=== PATIENT | female | born 1995 | race Caucasian/White ===

== ENCOUNTER 2019-11-07 00:07 | Emergency (ER) | payer OTHER ==
[~2019-11-07] VITALS: Ht 149.9 cm; Wt 64.9 kg
[2019-11-07 00:16] VITALS: Ht 149.9 cm; Wt 64.9 kg
[2019-11-07 00:23] LABS: BASOPHILS 0.4 % (0-2); EOSINOPHILS 0.9 % (0-7); HEMATOCRIT 41.2 % (36.0-48.0); HEMOGLOBIN 14.1 g/dL (12-16); IMMATURE GRANULOCYTES 0.3 % (0-5); LYMPHOCYTES 19.2 % (15-50); MCH 29.7 pg (26.0-34.0); MCHC 34.2 g/dL (31.0-37.0); MCV 86.7 fL (80.0-100.0); MEAN PLATELET VOLUME 10.3 fL (7.4-10.4); MONOCYTES 7.9 % (2-11); NEUTROPHILS 71.3 % (40-80); PLATELET COUNT 317 10x3/uL (130-400); RBC 4.75 10x6/uL (4.00-5.40); WBC 11.2 10x3/uL (4.8-10.8)
[2019-11-07 00:31] LABS: ANION GAP 11.2 mmol/L (8-16); CALCIUM 9.3 mg/dL (8.5-10.1); CARBON DIOXIDE 26.6 mmol/L (21.0-32.0); POTASSIUM - SERUM 3.8 mmol/L (3.5-5.1)
[2019-11-07 00:37] LABS: ALBUMIN 4.4 g/dL (3.4-5.0); BILIRUBIN - TOTAL 0.36 mg/dL (0.2-1.3); PROTEIN - SERUM 8.1 g/dL (6.4-8.2)
[2019-11-07] MEDS ORDERED: PHENERGAN25 MG RC (00:45)
[2019-11-07 00:50] LABS: BILIRUBIN NEGATIVE (NEGATIVE); GLUCOSE NEGATIVE (NEGATIVE); KETONE NEGATIVE (NEGATIVE); NITRITE NEGATIVE (NEGATIVE); UROBILINOGEN NORMAL (NORMAL)
[2019-11-07 00:52] LABS: HCG URINE NEGATIVE (NEGATIVE)
[2019-11-07 02:00] VITALS: BP 111/63
== END 2019-11-07 02:00 | disposition home or self-care (01) ==
LOC: D.ER 00:07
PROVIDERS: Family Medicine
DX: R10.11 Right upper quadrant pain (principal)

== ENCOUNTER → 2019-11-12 10:49 | Outpatient (CLI) | payer OTHER ==
[~2019-11-12 10:49] MED LIST: PHENERGAN25 MG RC
== END | disposition home or self-care (01) ==
LOC: D.NM 08:30
PROVIDERS: ATTEND Clinical Nurse Specialist Adult Health
DX: R10.9 Unspecified abdominal pain (principal)

== ENCOUNTER 2019-11-19 05:07 | Day surgery (SDC) | payer OTHER ==
[~2019-11-19] VITALS: Ht 149.9 cm; Wt 64.9 kg
[2019-11-19 05:32] LABS: HEMATOCRIT 41.1 % (36.0-48.0); HEMOGLOBIN 13.9 g/dL (12-16); MCH 29.5 pg (26.0-34.0); MCHC 33.8 g/dL (31.0-37.0); MCV 87.3 fL (80.0-100.0); MEAN PLATELET VOLUME 10.4 fL (7.4-10.4); RBC 4.71 10x6/uL (4.00-5.40); RDW 12.2 % (11.5-14.5); WBC 9.2 10x3/uL (4.8-10.8)
[2019-11-19 06:05] LABS: HCG SERUM NEGATIVE (NEGATIVE)
[2019-11-19 06:18] VITALS: BP 117/76
[2019-11-19 06:28] VITALS: BP 117/76; Ht 149.9 cm; Wt 64.9 kg
[2019-11-19] MEDS ORDERED: ZOFRAN4 MG PO (06:36)
[2019-11-19 06:53] LABS: HCG URINE NEGATIVE (NEGATIVE)
[2019-11-19] MEDS ORDERED: HYDROCODON-ACE1 EA10 PO (09:09)
--- NOTE | 2019-11-19 13:08 | NUR ---
1215-IV REMOVED WITH CATH INTACT,DISPOSED INTO SHARPS,COVERED WITH GUAZE AND MEDIPORE TAPE. REVIEWED POST OPERATIVE INSTRUCTIONS AND FOLLOW UP APPOINTMENT
--- NOTE | 2019-11-19 13:09 | NUR ---
1228- ESCORTED OUT VIA W/C WITH MOTHER AND LAW AWAITING TO DRIVE HOME
--- NOTE | 2019-11-20 13:30 | OP ---
PATIENT NAME: SHAMAR VILLASEÑOR MEDICAL RECORD: [id number] :97 LOCATION:D.OPS ADMISSION DATE: SURGEON: JAKE BRANCH MD DATE OF OPERATION: 11/19/2019 PREOPERATIVE DIAGNOSIS: Biliary dyskinesia. POSTOPERATIVE DIAGNOSIS: Biliary dyskinesia. PROCEDURE: Laparoscopic cholecystectomy. SURGEON: Jake Branch MD REPORT OF PROCEDURE: The patient's abdomen was prepped and draped in sterile fashion. A cutdown was made on the inferior aspect of the umbilicus, 0 Vicryls were placed in the fascia bilaterally and the fascia was incised with a 15-blade. I then entered the abdominal cavity with a hemostat and was able to place a 12-mm Wayne trocar. Under direct visualization, a 5-mm trocar was placed in the epigastrium and two more 5-mm trocars were placed in the right subcostal region. The gallbladder was grasped and elevated. There was no sign of inflammatory changes. The cystic artery and cystic duct were dissected free and I had my critical view of safety. These structures were clipped proximally and distally and ligated in standard fashion. The gallbladder was then taken off the liver bed using electrocautery and placed in the right upper quadrant. Any bleeding from the liver bed was treated with electrocautery. We then irrigated out the right upper quadrant and assured there was no sign of any bleeding or bile leakage. The ports and insufflation were then removed and the gallbladder was taken out through the umbilicus. The umbilical fascia was closed with interrupted 0 Vicryls times 3. The wounds were then irrigated out with normal saline and infused with 10 mL of 0.25% Marcaine with epinephrine. The skin incisions were all closed with subcutaneous 5-0 Monocryl and dressed appropriately. COMPLICATIONS: None. CONDITION: Stable. ANESTHESIA: General endotracheal and local. BLOOD LOSS: Minimal. TRANSINT:[id number] Voice Confirmation ID: [id number] DOCUMENT ID: [id number] JAKE BRANCH MD at 1330 CC: BRADLEY FERRARO [id number] DICTATION DATE: 11/19/19917 [place] CHIEF: 11/19/1933 [facility] 11/19/19 [place] [address]
== END 2019-11-19 12:28 | disposition home or self-care (01) ==
LOC: D.OPS 05:07
PROVIDERS: Anesthesiology; ATTEND Surgery
DX: K82.8 Other specified diseases of gallbladder (principal)

== ENCOUNTER 2019-11-23 03:47 | Emergency (ER) | payer OTHER ==
[~2019-11-23] VITALS: Ht 149.9 cm; Wt 65.0 kg
[~2019-11-23 03:47] MED LIST changes: +HYDROCODON-ACE1 EA10 PO; +ZOFRAN4 MG PO
[2019-11-23 03:54] VITALS: Ht 149.9 cm; Wt 65.0 kg
[2019-11-23 04:10] LABS: BASOPHILS 0.3 % (0-2); EOSINOPHILS 0.9 % (0-7); HEMATOCRIT 37.5 % (36.0-48.0); IMMATURE GRANULOCYTES 0.3 % (0-5); LYMPHOCYTES 22.8 % (15-50); MCH 29.6 pg (26.0-34.0); MCHC 34.7 g/dL (31.0-37.0); MCV 85.4 fL (80.0-100.0); MEAN PLATELET VOLUME 10.4 fL (7.4-10.4); NEUTROPHILS 67.7 % (40-80); PLATELET COUNT 274 10x3/uL (130-400); RBC 4.39 10x6/uL (4.00-5.40); RDW 11.8 % (11.5-14.5)
[2019-11-23 04:17] LABS: CALC OSMOLALITY 271 mosm/kg (275-300); CALCIUM 9.3 mg/dL (8.5-10.1); CARBON DIOXIDE 26.4 mmol/L (21.0-32.0); CHLORIDE - SERUM 100 mmol/L (98-107); CREATININE - SERUM 0.8 mg/dL (0.6-1.3); GLUCOSE 99 mg/dL (74-106); POTASSIUM - SERUM 3.4 mmol/L (3.5-5.1); SODIUM 136 mmol/L (136-145); UREA NITROGEN 12 mg/dL (7-18); eGFR NON AFRICAN AMERICAN > 90 mL/min (90-120)
[2019-11-23 04:24] LABS: ALBUMIN 4.1 g/dL (3.4-5.0); ALKALINE PHOSPHATASE 75 U/L (30-120); ALT (SGPT) 82 U/L (10-68); BILIRUBIN - TOTAL 0.49 mg/dL (0.2-1.3); LIPASE 85 U/L (73-393); PROTEIN - SERUM 7.8 g/dL (6.4-8.2)
[2019-11-23 04:30] LABS: HCG SERUM NEGATIVE (NEGATIVE)
[2019-11-23 06:05] VITALS: BP 135/64
== END 2019-11-23 06:05 | disposition home or self-care (01) ==
LOC: D.ER 03:47
PROVIDERS: Family Medicine
DX: R10.11 Right upper quadrant pain (principal); R11.0 Nausea; Z90.49 Acquired absence of other specified parts of digestive tract